=== PATIENT | female | born 1955 ===

== ENCOUNTER 2016-12-27 20:17 | Emergency (ER) | payer MEDICAID ==
[2016-12-27 20:24] VITALS: BMI 21.1
[2016-12-27 20:29] VITALS: TEMP 97.6
--- NOTE | 2016-12-27 21:01 | ED PDOC ---
Arrival/HPI - General Chief Complaint: Abdominal Pain Time Seen by Provider: 12/27/16 20:22 - History of Present Illness Narrative History of Present Illness (Text): 12/27/16 21:05 Tiffany Akers is a 61 year old female, with a history of gastritis on Omeprazole , presets to the emergency department complaining of occassional lower abdominal pain associated with spotting of blood on her underwear.Thinks possibly from her vagina.No vaginal bleeding presently.Pt. has had a hysterectomy.Denies fever, chills, headache, dizziness, chest pain, difficulty breathing, nausea,vomiting, diarrhea,dysuria or any other complaints at this time. Time/Duration: Other (today morning ) Symptom Onset: Gradual Symptom Course: Unchanged Severity Level: Mild Activities at Onset: Light Context: Home Past Medical History - Provider Review Nursing Documentation Reviewed: Yes - Infectious Disease Hx of Infectious Diseases: None - Tetanus Immunization Tetanus Immunization: Unknown - Reproductive Menopause: Yes - Past Medical History Past Medical History: No Previous - Gastrointestinal Hx Gastritis: Yes Other/Comment: Gallstones - Psychiatric Hx Depression: No Hx Emotional Abuse: No Hx Physical Abuse: No Hx Substance Use: No - Past Surgical History Past Surgical History: No Previous - Surgical History Hx Hysterectomy: Yes - Anesthesia Hx Anesthesia: Yes Hx Anesthesia Reactions: No Hx Malignant Hyperthermia: No - Suicidal Assessment Feels Threatened In Home Enviroment: No Family/Social History - Physician Review Nursing Documentation Reviewed: Yes Family/Social History: No Known Family HX Smoking Status: Never Smoked Hx Alcohol Use: No Hx Substance Use: No Hx Substance Use Treatment: No Allergies/Home Meds Allergies/Adverse Reactions: Allergies No Known Allergies Allergy (Verified 12/31/14 15:26) Review of Systems - Physician Review All systems were reviewed & negative as marked: Yes - Review of Systems Constitutional: Normal. absent: Fatigue, Fevers Respiratory: Normal. absent: SOB, Cough Cardiovascular: Normal. absent: Chest Pain Gastrointestinal: Abdominal Pain (lower abdominal pain ). absent: Diarrhea, Nausea, Vomiting Genitourinary Female: Normal. absent: Dysuria, Frequency Musculoskeletal: Back Pain Skin: Normal Neurological: Normal. absent: Headache, Dizziness Psychiatric: Normal Physical Exam Vital Signs Reviewed: Yes Vital Signs Temp Pulse Resp BP Pulse Ox 12/28/16 01:02 78 18 128/64 99 12/27/16 20:28 97.6 F 76 16 146/75 97 Temperature: Afebrile Blood Pressure: Normal Pulse: Regular Respiratory Rate: Normal Appearance: Positive for: Well-Appearing, Non-Toxic, Comfortable Pain Distress: None Mental Status: Positive for: Alert and Oriented X 3 - Systems Exam Head: Present: Atraumatic, Normocephalic Pupils: Present: PERRL Extroacular Muscles: Present: EOMI Conjunctiva: Present: Normal Respiratory/Chest: Present: Clear to Auscultation, Good Air Exchange. No: Respiratory Distress, Accessory Muscle Use Cardiovascular: Present: Regular Rate and Rhythm, Normal S1, S2. No: Murmurs Abdomen: Present: Normal Bowel Sounds. No: Tenderness, Distention, Peritoneal Signs Rectal: Present: Other (no occult blood /guaic negative). No: Rectal Tenderness , Gross Blood, Hemorrhoids, Fissures Genitourinary/Pelvic Exam: No: Vaginal Discharge, Vaginal Bleeding Upper Extremity: Present: Normal Inspection. No: Cyanosis, Edema Lower Extremity: Present: Normal Inspection. No: Edema Neurological: Present: GCS=15, CN II-XII Intact, Speech Normal Skin: Present: Warm, Dry, Normal Color. No: Rashes Psychiatric: Present: Alert, Oriented x 3, Normal Insight, Normal Concentration Medical Decision Making ED Course and Treatment: 12/27/16 21:18 Impression: A 61 year old female who presents to the ed complaining of lower abdominal pain associated with scant amount of blood noted on her underwear. Plan: -- CT abdomen pelvis -- Labs -- CXR -- Protonix -- IV fluids -- Toradol -- Urinalysis Progress Notes: 12/27/16 23:29 CT Abdomen and Pelvis With Intravenous results reviewed: FINDINGS: Lower thorax: There is minimal bibasilar atelectasis. There is a tiny hiatal hernia. ABDOMEN: Liver: There are no focal liver lesions present. Gallbladder and bile ducts: The gallbladder is contracted but otherwise normal. No calcified stones. No ductal dilation. Pancreas: The pancreas is normal. No ductal dilation. Spleen: The spleen is normal. Adrenals: The adrenal glands are normal. Kidneys and ureters: The kidneys are normal. No hydronephrosis. Stomach and bowel: Stomach is decompressed. Colonic constipation is present. There is no evidence of intestinal obstruction. No mucosal thickening. Appendix: A normal appendix is identified. Bladder: Bladder is decompressed. Reproductive: There has been a hysterectomy. ABDOMEN and PELVIS: Intraperitoneal space: There is no evidence of free intraperitoneal fluid. There is no free intraperitoneal air. Bones/joints: There are mild degenerative changes present. There is mild diffuse osteopenia. No acute fracture. No dislocation. Soft tissues: Unremarkable. Vasculature: The aorta demonstrates moderate atherosclerotic calcification. No abdominal aortic aneurysm. Lymph nodes: There is no evidence of lymphadenopathy. IMPRESSION: No acute findings. 12/27/16 23:49 On re-evaluation, patient feels better and is in no acute distress. I have discussed the results and plan with the patient, who expresses understanding. Patient in agreement with plan to be discharged home. Patient is stable for discharge. Patient was instructed to follow up with physician or return if symptoms worsen or new concerning symptoms arise. - Lab Interpretations Lab Results: 12/27/16 22:02 12/27/16 22:02 Lab Results 12/27/16 22:23: Urine Color Yellow, Urine Appearance Slight-cloudy, Urine pH 7.0 , Ur Specific [place] 1.020, Urine Protein Negative, Urine Glucose (UA) Negative , Urine Ketones Negative, Urine Blood Negative, Urine Nitrate Negative, Urine Bilirubin Negative, Urine Urobilinogen 1.0 H, Ur Leukocyte Esterase Small H, Urine RBC 0 - 2, Urine WBC 1 - 3, Ur Epithelial Cells 1 - 3, Urine Bacteria Small 12/27/16 22:02: WBC 4.8, RBC 3.78, Hgb 11.6 L, Hct 34.3 L, MCV 90.7, MCH 30.7, MCHC 33.8, RDW 12.7, Plt Count 212, MPV 10.9, PT 10.5, INR 0.97, APTT 24.7, Sodium 143, Potassium 4.0, Chloride 106, Carbon Dioxide 27, Anion Gap 14, BUN 19 , Creatinine 0.6, Est GFR ( Amer) > 60, Est GFR (Non-Af Amer) > 60, Random Glucose 99, Calcium 9.0, Total Bilirubin 0.5, AST 20, ALT 31, Alkaline Phosphatase 66, Total Protein 7.1, Albumin 3.8, Globulin 3.2, Albumin/Globulin Ratio 1.2 I have reviewed the lab results: Yes - RAD Interpretation Radiology Orders: 12/27/16 20:59 CHEST PORTABLE [RAD] Stat 12/27/16 21:00 ABD & PELVIS IV CONTRAST ONLY [CT] Stat Investigation Division Sergeant: Radiologist - Medication Orders Current Medication Orders: Discontinued Medications Sodium Chloride (Sodium Chloride 0.9%) 1,000 mls @ 100 mls/hr IV .Q10H TRIPP Last Admin: 12/27/16 21:50 Dose: 100 MLS/HR eMAR Start Stop Document 12/27/16 21:50 MR (Rec: 12/27/16 22:04 MR [id number]) Intravenous Solution Start Date 12/27/16 Start Time 21:50 Iohexol (Omnipaque 350 100 Ml) Confirm Administered Dose 350 mg .ROUTE .STK-MED ONE Stop: 12/27/16 22:24 Ketorolac Tromethamine (Toradol) 30 mg IVP ONCE ONE Stop: 12/27/16 21:02 Last Admin: 12/27/16 22:07 Dose: 30 MG IVP Administration Document 12/27/16 22:07 MR (Rec: 12/27/16 22:07 MR [id number]) Charges for Administration # of IVP Administrations 1 Pantoprazole Sodium (Protonix Inj) 40 mg IVP ONCE STA Stop: 12/27/16 21:02 Last Admin: 12/27/16 22:07 Dose: 40 MG IVP Administration Document 12/27/16 22:07 MR (Rec: 12/27/16 22:07 MR [id number]) Charges for Administration # of IVP Administrations 1 - Scribe Statement The provider has reviewed the documentation as recorded by the Joyce Oliver Provider Attestation: All medical record entries made by the Joyce were at my direction and personally dictated by me. I have reviewed the chart and agree that the record accurately reflects my personal performance of the history, physical exam, medical decision making, and the department course for this patient. I have also personally directed, reviewed, and agree with the discharge instructions and disposition. Disposition/Present on Arrival - Present on Arrival Any Indicators Present on Arrival: No History of DVT/PE: No History of Uncontrolled Diabetes: No Urinary Catheter: No History of Decub. 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
[2016-12-27] MEDS ORDERED: Sodium Chloride 0.9% 1,000 ML IV SCH (21:15)
[2016-12-27 22:14] LABS: HEMATOCRIT 34.3 % (36.0-48.0); MEAN CELL VOLUME 90.7 fL (80.0-105.0); MEAN CORPUSCULAR HEMOGLOBIN 30.7 pg (25.0-35.0); MEAN CORPUSCULAR HGB CONC 33.8 g/dl (31.0-37.0); MEAN PLATELET VOLUME 10.9 fl (7.0-11.0); RED CELL DISTRIBUTION WIDTH 12.7 % (11.5-14.5); WHITE BLOOD COUNT 4.8 10^3/ul (4.5-11.0)
[2016-12-27 22:18] LABS: ALB/GLOB RATIO 1.2 (1.1-1.8); ALKALINE PHOSPHATASE 66 U/L (38-133); ALT/SGPT 31 U/L (7-56); AST/SGOT 20 U/L (15-39); BILIRUBIN,TOTAL 0.5 mg/dL (0.2-1.3); BLOOD UREA NITROGEN 19 mg/dL (7-21); CARBON DIOXIDE 27 mmol/L (21-33); CHLORIDE 106 mmol/L (98-107); GFR AFRICAN-AMERICAN > 60; GLUCOSE,RANDOM 99 mg/dL (70-110); SODIUM 143 mmol/L (132-148); TOTAL PROTEIN 7.1 g/dL (5.8-8.3)
[2016-12-27] MEDS ORDERED: Iohexol 350 MG/100 ML VIAL ONE (22:23)
[2016-12-27 22:30] LABS: URINE BILIRUBIN NEGATIVE (NEGATIVE); URINE BLOOD NEGATIVE (NEGATIVE); URINE GLUCOSE (UA) NEGATIVE (NEGATIVE); URINE KETONE NEGATIVE (NEGATIVE); URINE LEUKOCYTE ESTERASE SMALL Leu/uL (NEGATIVE); URINE PROTEIN NEGATIVE mg/dL (<30 mg/dL)
[2016-12-27 22:33] LABS: URINE APPEARANCE SLIGHT-CLOUDY (CLEAR); URINE COLOR YELLOW (YELLOW)
[2016-12-27 22:41] LABS: URINE RBC 0 - 2 /hpf (0-2)
[2016-12-27 22:42] LABS: URINE BACTERIA SMALL (NEG)
[2016-12-27 22:43] LABS: INR 0.97 (0.93-1.08); PARTIAL THROMBOPLASTIN TIME 24.7 Seconds (23.7-30.8)
--- NOTE | 2016-12-27 23:24 | CT ---
EXAM: CT Abdomen and Pelvis With Intravenous Contrast CLINICAL HISTORY: 61 years old, female; Pain; Abdominal pain; Localized; Lower; Additional info: Lower abdominal pain TECHNIQUE: Axial computed tomography images of the abdomen and pelvis with intravenous contrast. This CT exam was performed using one or more of the following dose reduction techniques: automated exposure control, adjustment of the mA and/or kV according to patient size, and/or use of iterative reconstruction technique. Coronal and sagittal reformatted images were created and reviewed. CONTRAST: 96 mL of omni 350 administered intravenously. COMPARISON: OT - DENSITOMETRY HIP SPINE 12/31/2015 9:55:00 AM FINDINGS: Lower thorax: There is minimal bibasilar atelectasis. There is a tiny hiatal hernia. ABDOMEN: Liver: There are no focal liver lesions present. Gallbladder and bile ducts: The gallbladder is contracted but otherwise normal. No calcified stones. No ductal dilation. Pancreas: The pancreas is normal. No ductal dilation. Spleen: The spleen is normal. Adrenals: The adrenal glands are normal. Kidneys and ureters: The kidneys are normal. No hydronephrosis. Stomach and bowel: Stomach is decompressed. Colonic constipation is present. There is no evidence of intestinal obstruction. No mucosal thickening. Appendix: A normal appendix is identified. PELVIS: Bladder: Bladder is decompressed. Reproductive: There has been a hysterectomy. ABDOMEN and PELVIS: Intraperitoneal space: There is no evidence of free intraperitoneal fluid. There is no free intraperitoneal air. Bones/joints: There are mild degenerative changes present. There is mild diffuse osteopenia. No acute fracture. No dislocation. Soft tissues: Unremarkable. Vasculature: The aorta demonstrates moderate atherosclerotic calcification. No abdominal aortic aneurysm. Lymph nodes: There is no evidence of lymphadenopathy. IMPRESSION: No acute findings.
[2016-12-28 01:03] VITALS: BP 128/64; PULSE 78; RESP 18; O2SAT 99
--- NOTE | 2016-12-28 09:19 | RAD ---
HISTORY: Abdominal pain COMPARISON: 12/31/2015 FINDINGS: LUNGS: The lungs are well inflated and clear. PLEURA: No significant pleural effusion identified, no pneumothorax apparent. CARDIOVASCULAR: Normal. OSSEOUS STRUCTURES: No significant abnormalities. VISUALIZED UPPER ABDOMEN: Normal. OTHER FINDINGS: None. IMPRESSION: No active pulmonary disease.
== END 2016-12-28 01:09 | disposition home or self-care (01) ==
LOC: ED 20:17
DX: R10.9 Unspecified abdominal pain (principal); Z90.710 Acquired absence of both cervix and uterus
CPT/HCPCS: 71010; 74177; 80053; 81001; 85027; 85610; 85730; 87086; 96374; 96375; 99283; C9113; J1885; J7040; Q9967

== ENCOUNTER 2017-03-06 15:11 | Emergency (ER) | payer MEDICAID ==
[2017-03-06 15:14] VITALS: BMI 22.0
[2017-03-06 15:19] VITALS: TEMP 98; O2SAT 100
[2017-03-06] MEDS ORDERED: DiphenhydrAMINE 50 mg/ml Inj IM STA (15:38)
--- NOTE | 2017-03-06 15:40 | ED PDOC ---
Arrival/HPI - General Historian: Patient - General Chief Complaint: Abnormal Skin Integrity Time Seen by Provider: 03/06/17 15:30 - History of Present Illness Narrative History of Present Illness (Text): 03/06/17 15:39 61 y/o female, no pmh, nkda, c/o itching hives all over the body started last night. Itching hives, no fever or chills, no change in food/clothing/detergent , no night sweat, no numbness or tingling, no palpitation, no urinary symptoms, no night sweat, no other medical or psychological complaints. Pt. has no difficulty swallowing or drinking, no coughing or gagging, no other medical or psychological complaints. (Omid Christianson) Past Medical History - Provider Review Nursing Documentation Reviewed: Yes - Infectious Disease Hx of Infectious Diseases: None - Tetanus Immunization Tetanus Immunization: Unknown - Reproductive Menopause: Yes - Past Medical History Past Medical History: No Previous - Gastrointestinal Hx Gastritis: Yes Other/Comment: Gallstones - Psychiatric Hx Depression: No Hx Emotional Abuse: No Hx Physical Abuse: No Hx Substance Use: No - Past Surgical History Past Surgical History: No Previous - Surgical History Hx Hysterectomy: Yes - Anesthesia Hx Anesthesia: Yes Hx Anesthesia Reactions: No Hx Malignant Hyperthermia: No - Suicidal Assessment Feels Threatened In Home Enviroment: No Family/Social History - Physician Review Nursing Documentation Reviewed: Yes Family/Social History: Unknown Family HX Smoking Status: Never Smoked Hx Alcohol Use: No Hx Substance Use: No Hx Substance Use Treatment: No Allergies/Home Meds Allergies/Adverse Reactions: Allergies No Known Allergies Allergy (Verified 03/06/17 15:14) Review of Systems - Review of Systems Constitutional: absent: Fatigue, Fevers Eyes: absent: Vision Changes ENT: absent: Hearing Changes Respiratory: absent: SOB, Cough Cardiovascular: absent: Chest Pain Gastrointestinal: absent: Abdominal Pain, Diarrhea, Nausea, Vomiting Genitourinary Female: absent: Dysuria Musculoskeletal: absent: Arthralgias, Back Pain, Neck Pain, Joint Swelling Skin: Rash, Pruritis, Skin Lesions Psychiatric: absent: Anxiety, Depression, Suicidal Ideation Physical Exam Vital Signs Reviewed: Yes Temperature: Afebrile Blood Pressure: Normal Pulse: Regular Respiratory Rate: Normal Appearance: Positive for: Well-Appearing, Non-Toxic, Comfortable Pain Distress: None Mental Status: Positive for: Alert and Oriented X 3 - Systems Exam Head: Present: Atraumatic, Normocephalic Pupils: Present: PERRL Extroacular Muscles: Present: EOMI Conjunctiva: Present: Normal Mouth: Present: Moist Mucous Membranes Neck: Present: Normal Range of Motion Respiratory/Chest: Present: Clear to Auscultation, Good Air Exchange. No: Respiratory Distress, Accessory Muscle Use Cardiovascular: Present: Regular Rate and Rhythm, Normal S1, S2. No: Murmurs Abdomen: Present: Normal Bowel Sounds. No: Tenderness, Distention, Peritoneal Signs Back: Present: Normal Inspection Upper Extremity: Present: Normal Inspection. No: Cyanosis, Edema Lower Extremity: Present: Normal Inspection. No: Edema Neurological: Present: GCS=15, Speech Normal Skin: Present: Warm, Dry, Rashes (scattered approx. [id number] blanchable hives with no central insect bite vincent noted on the bilateral upper/lower extremities /chest/back and facial region, no bullseye or target signs, no cellulitis or streaking, no ulcers. ), Normal Color Psychiatric: Present: Alert, Oriented x 3, Normal Insight, Normal Concentration Vital Signs Temp Pulse Resp BP Pulse Ox 03/06/17 15:18 98.0 F 83 19 115/71 100 Medical Decision Making ED Course and Treatment: I was available for consultation during PA evaluation. The chart was reviewed by me, and I agree with disposition. The documented history was done by the physician general adjuster. The documented physical exam was done by the physician general adjuster. The documented procedures were done by the physician general adjuster. (Rickey Jane) 03/06/17 15:39 -benadryl, pepcid, prednisone -Observe and reassess 03/06/17 16:57 -Pt. feels significantly better, itching resolved, request to be discharged home , will discharge home. 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 (Omid Christianson) - Medication Orders Current Medication Orders: Discontinued Medications Diphenhydramine HCl (Benadryl) 50 mg IM STAT STA Stop: 03/06/17 15:39 Last Admin: 03/06/17 16:07 Dose: 50 mg Famotidine (Pepcid) 20 mg PO STAT STA Stop: 03/06/17 15:39 Last Admin: 03/06/17 16:07 Dose: 20 mg Prednisone (Prednisone Tab) 60 mg PO STAT ONE Stop: 03/06/17 15:39 Last Admin: 03/06/17 16:07 Dose: 60 mg - PA / COURT WORKER / Resident Statement MD/DO has reviewed & agrees with the documentation as recorded. Disposition/Present on Arrival - Present on Arrival Any Indicators Present on Arrival: No History of DVT/PE: No History of Uncontrolled Diabetes: No Urinary Catheter: No History of Decub. Ulcer: No History Surgical Site Infection Following: None - Disposition Have Diagnosis and Disposition been Completed?: Yes Disposition Time: 15:40 - Disposition Diagnosis: Urticaria Patient Problems: Current Active Problems Problem Status Onset Urticaria Acute Condition: IMPROVED Additional Instructions: Discharge home with indomethacin, maximus wrap, sling, elbow brace, follow up with your own pmd and orthopedic within 2 days, you will need MRI study if the pain doesn't improved after 5-7 days, return to the ER for any new or worsening signs or symptoms. Prescriptions: DiphenhydrAMINE [Benadryl] 50 mg PO QID PRN #20 cap PRN Reason: Other Famotidine [Pepcid] 20 mg PO BID #10 tab predniSONE [Prednisone] 2 tab PO DAILY #8 tab Referrals: Montana Saavedra MD [Staff Provider] - Follow up with primary [facility] [Outside] - Follow up with primary Forms: WORK NOTE
[2017-03-06 16:57] VITALS: BP 99/62; PULSE 71; RESP 20
== END 2017-03-06 17:14 | disposition home or self-care (01) ==
LOC: ED 15:11
DX: L50.9 Urticaria, unspecified (principal)
CPT/HCPCS: 96372; 99283; J1200